=== PATIENT | female | born 1970 | race Caucasian/White ===

== ENCOUNTER 2019-09-04 14:41 | Inpatient (IN) | payer MEDICAID ==
[~2019-09-04] VITALS: Ht 160 cm; Wt 56.0 kg
[2019-09-04] MEDS ORDERED: ZOLPIDEM TARTRATE 10 MG TABLET PO PRN (16:45)
[2019-09-04] MEDS ORDERED: PROMETHAZINE HCL 25 MG TABLET PO PRN (16:45)
[2019-09-04] MEDS ORDERED: TUBERCULIN, PURIFIED PROTEIN DERIVATIVE 5 TU/0.1 ML SYRINGE ID ONE (16:45)
[2019-09-04] MEDS ORDERED: LOPERAMIDE HCL 2 MG CAPSULE PO PRN (16:45)
[2019-09-04] MEDS ORDERED: MAGNESIUM HYDROXIDE SUSPENSION 30 ML UDCUP PO PRN (16:45)
[2019-09-04] MEDS ORDERED: ACETAMINOPHEN 325 MG TABLET PO PRN (16:45)
[2019-09-04] MEDS ORDERED: MAG HYDROX/AL HYDROX/SIMETH ES 30 ML SUSPENSION UDCUP PO PRN (16:45)
[2019-09-04] MEDS ORDERED: HydrOXYzine PAMOATE 50 MG CAPSULE PO PRN (16:45)
[2019-09-04] MEDS ORDERED: OLANZapine 5 MG RAPDIS TABLET PO PRN (16:45)
[2019-09-04] MEDS ORDERED: GuaiFENesin/D-METHORPHAN [SUGAR-FREE] 200-20MG/10 ML SYRUP UDCUP PO PRN (16:45)
[2019-09-04] MEDS: THIAMINE 100 MG TABLET PO SCH (20:38)
[2019-09-04] MEDS: OLANZapine 5 MG RAPDIS TABLET PO SCH (20:38)
[2019-09-04] MEDS: LORazepam 2 MG TABLET PO PRN (21:15)
[2019-09-04 21:51] VITALS: BP 112/51
[2019-09-05] MEDS: MULTIVITAMINS WITH MINERALS, THERAPEUTIC TABLET PO SCH (08:22)
[2019-09-05] MEDS: THIAMINE 100 MG TABLET PO SCH ×2 (08:22→16:23)
[2019-09-05] MEDS: FOLIC ACID 1 MG TABLET PO SCH (08:22)
[2019-09-05] MEDS: NALTREXONE HCL 50 MG TABLET PO SCH (08:22)
[2019-09-05 17:09] VITALS: BP 108/51
[2019-09-05] MEDS: OLANZapine 5 MG RAPDIS TABLET PO SCH (21:14)
[2019-09-06 08:00] VITALS: BP 99/67
[2019-09-06] MEDS: MULTIVITAMINS WITH MINERALS, THERAPEUTIC TABLET PO SCH (09:00)
[2019-09-06] MEDS: FOLIC ACID 1 MG TABLET PO SCH (09:00)
[2019-09-06] MEDS: NALTREXONE HCL 50 MG TABLET PO SCH (09:00)
[2019-09-06] MEDS: THIAMINE 100 MG TABLET PO SCH ×2 (09:00→16:21)
[2019-09-06] MEDS: OLANZapine 10 MG RAPDIS TABLET PO SCH (21:39)
[2019-09-07] MEDS: THIAMINE 100 MG TABLET PO SCH ×2 (08:31→16:10)
[2019-09-07] MEDS: NALTREXONE HCL 50 MG TABLET PO SCH (08:31)
[2019-09-07] MEDS: MULTIVITAMINS WITH MINERALS, THERAPEUTIC TABLET PO SCH (08:31)
[2019-09-07] MEDS: FOLIC ACID 1 MG TABLET PO SCH (08:31)
[2019-09-07 16:36] VITALS: BP 122/70
[2019-09-07] MEDS: OLANZapine 10 MG RAPDIS TABLET PO SCH (20:18)
[2019-09-08] MEDS: NALTREXONE HCL 50 MG TABLET PO SCH (09:00)
[2019-09-08] MEDS: FOLIC ACID 1 MG TABLET PO SCH (09:00)
[2019-09-08] MEDS: THIAMINE 100 MG TABLET PO SCH ×2 (09:00→16:26)
[2019-09-08] MEDS: MULTIVITAMINS WITH MINERALS, THERAPEUTIC TABLET PO SCH (09:00)
[2019-09-08 17:51] VITALS: BP 96/72
[2019-09-08] MEDS: OLANZapine 10 MG RAPDIS TABLET PO SCH (20:40)
[2019-09-09] MEDS: NALTREXONE HCL 50 MG TABLET PO SCH (09:57)
[2019-09-09] MEDS: MULTIVITAMINS WITH MINERALS, THERAPEUTIC TABLET PO SCH (09:57)
[2019-09-09] MEDS: FOLIC ACID 1 MG TABLET PO SCH (09:57)
[2019-09-09] MEDS: THIAMINE 100 MG TABLET PO SCH ×2 (09:57→16:33)
[2019-09-09] MEDS: OLANZapine 10 MG RAPDIS TABLET PO SCH (20:52)
[2019-09-10] MEDS: MULTIVITAMINS WITH MINERALS, THERAPEUTIC TABLET PO SCH (09:00)
[2019-09-10] MEDS: THIAMINE 100 MG TABLET PO SCH ×2 (09:00→16:44)
[2019-09-10] MEDS: NALTREXONE HCL 50 MG TABLET PO SCH (09:00)
[2019-09-10] MEDS: FOLIC ACID 1 MG TABLET PO SCH (09:00)
[2019-09-10] MEDS: OLANZapine 10 MG RAPDIS TABLET PO SCH (20:20)
[2019-09-11 00:27] VITALS: BP 128/70
[2019-09-11] MEDS: MULTIVITAMINS WITH MINERALS, THERAPEUTIC TABLET PO SCH (09:00)
[2019-09-11] MEDS: THIAMINE 100 MG TABLET PO SCH ×2 (09:00→16:16)
[2019-09-11] MEDS: NALTREXONE HCL 50 MG TABLET PO SCH (09:00)
[2019-09-11] MEDS: FOLIC ACID 1 MG TABLET PO SCH (09:00)
[2019-09-11] MEDS: OLANZapine 10 MG RAPDIS TABLET PO SCH (20:26)
[2019-09-12] MEDS: FOLIC ACID 1 MG TABLET PO SCH (08:46)
[2019-09-12] MEDS: NALTREXONE HCL 50 MG TABLET PO SCH (08:46)
[2019-09-12] MEDS: THIAMINE 100 MG TABLET PO SCH ×2 (08:47→16:01)
[2019-09-12] MEDS: MULTIVITAMINS WITH MINERALS, THERAPEUTIC TABLET PO SCH (08:47)
[2019-09-12] MEDS ORDERED: HALOPERIDOL LACTATE 5 MG/ML VIAL IM ONE (14:45)
[2019-09-12] MEDS ORDERED: DiphenhydrAMINE HCL 50 MG/ML VIAL IM ONE (14:45)
[2019-09-12] MEDS ORDERED: LORazepam 2 MG/ML VIAL IM ONE (14:45)
[2019-09-12 17:53] VITALS: BP 115/80
[2019-09-12] MEDS: DIVALPROEX SODIUM 500 MG ER TABLET PO SCH (20:06)
[2019-09-12] MEDS: OLANZapine 10 MG RAPDIS TABLET PO SCH (20:06)
[2019-09-13 01:32] VITALS: BP 147/60
[2019-09-13] MEDS: NALTREXONE HCL 50 MG TABLET PO SCH (08:21)
[2019-09-13] MEDS: MULTIVITAMINS WITH MINERALS, THERAPEUTIC TABLET PO SCH (08:21)
[2019-09-13] MEDS: THIAMINE 100 MG TABLET PO SCH ×2 (08:21→16:20)
[2019-09-13] MEDS: FOLIC ACID 1 MG TABLET PO SCH (08:21)
[2019-09-13] MEDS: OLANZapine 10 MG RAPDIS TABLET PO SCH (20:02)
[2019-09-13] MEDS: DIVALPROEX SODIUM 500 MG ER TABLET PO SCH (20:02)
[2019-09-14] MEDS: MULTIVITAMINS WITH MINERALS, THERAPEUTIC TABLET PO SCH (08:25)
[2019-09-14] MEDS: FOLIC ACID 1 MG TABLET PO SCH (08:25)
[2019-09-14] MEDS: NALTREXONE HCL 50 MG TABLET PO SCH (08:25)
[2019-09-14] MEDS: THIAMINE 100 MG TABLET PO SCH (08:25)
[2019-09-14 08:30] VITALS: BP 103/56
[2019-09-14] MEDS ORDERED: OLAN10TA22 PO (15:01)
[2019-09-14] MEDS ORDERED: DIVA500T52 PO (15:01)
[2019-09-14] MEDS ORDERED: NALT50TA PO (15:01)
[2019-09-14] MEDS: LORazepam 2 MG TABLET PO PRN (17:46)
[2019-09-14] MEDS: DIVALPROEX SODIUM 500 MG ER TABLET PO SCH (20:14)
[2019-09-14] MEDS: OLANZapine 10 MG RAPDIS TABLET PO SCH (20:14)
[2019-09-15 08:30] VITALS: BP 107/59
[2019-09-15] MEDS: MULTIVITAMINS WITH MINERALS, THERAPEUTIC TABLET PO SCH (08:45)
[2019-09-15] MEDS: NALTREXONE HCL 50 MG TABLET PO SCH (08:45)
== END 2019-09-15 13:15 | disposition home or self-care (01) | DRG 885 ==
LOC: EMS 14:44 → 3EI 18:00
PROVIDERS: ADMIT Psychiatry & Neurology Psychiatry; ATTEND Psychiatry & Neurology Psychiatry
DX: F20.0 Paranoid schizophrenia (principal); F17.210 Nicotine dependence, cigarettes, uncomplicated; Z91.19 Patient's noncompliance with other medical treatment and regimen; Z98.891 History of uterine scar from previous surgery
CPT/HCPCS: J1200; J1630; J2060

== ENCOUNTER 2019-10-06 09:44 | Inpatient (IN) | payer MEDICAID ==
[~2019-10-06 09:44] MED LIST: DIVA-80 PO; DIVA-85 PO; NALT50TA PO; OLAN10TA22 PO; OLAN10TA3 PO
[2019-10-06] MEDS ORDERED: MAG HYDROX/AL HYDROX/SIMETH ES 30 ML SUSPENSION UDCUP PO PRN (14:45)
[2019-10-06] MEDS ORDERED: LOPERAMIDE HCL 2 MG CAPSULE PO PRN (14:45)
[2019-10-06] MEDS ORDERED: GuaiFENesin/D-METHORPHAN [SUGAR-FREE] 200-20MG/10 ML SYRUP UDCUP PO PRN (14:45)
[2019-10-06] MEDS ORDERED: ACETAMINOPHEN 325 MG TABLET PO PRN (14:45)
[2019-10-06] MEDS ORDERED: HydrOXYzine PAMOATE 50 MG CAPSULE PO PRN (14:45)
[2019-10-06] MEDS ORDERED: MAGNESIUM HYDROXIDE SUSPENSION 30 ML UDCUP PO PRN (14:45)
[2019-10-06] MEDS ORDERED: PROMETHAZINE HCL 25 MG TABLET PO PRN (14:45)
[2019-10-06 16:16] VITALS: BP 121/55
[2019-10-06] MEDS: THIAMINE 100 MG TABLET PO SCH (17:14)
[2019-10-06] MEDS: OLANZapine 5 MG RAPDIS TABLET PO SCH (21:00)
[2019-10-06] MEDS: DIVALPROEX SODIUM 500 MG ER TABLET PO SCH (21:00)
[2019-10-07 02:11] VITALS: BP 100/63
[2019-10-07] MEDS: MULTIVITAMINS WITH MINERALS, THERAPEUTIC TABLET PO SCH ×2 (08:47→10:42)
[2019-10-07] MEDS: NALTREXONE HCL 50 MG TABLET PO SCH ×2 (08:47→10:42)
[2019-10-07] MEDS: THIAMINE 100 MG TABLET PO SCH ×3 (08:47→17:03)
[2019-10-07] MEDS: FOLIC ACID 1 MG TABLET PO SCH ×2 (08:47→10:42)
[2019-10-07] MEDS: LORazepam 2 MG TABLET PO PRN ×2 (10:42→17:03)
[2019-10-07 16:06] VITALS: BP 109/60
[2019-10-07] MEDS: DIVALPROEX SODIUM 500 MG ER TABLET PO SCH (21:00)
[2019-10-07] MEDS: OLANZapine 5 MG RAPDIS TABLET PO SCH (21:00)
[2019-10-08 01:20] VITALS: BP 100/66
[2019-10-08] MEDS: LORazepam 2 MG TABLET PO PRN ×2 (08:23→16:53)
[2019-10-08] MEDS: THIAMINE 100 MG TABLET PO SCH ×2 (08:23→16:52)
[2019-10-08] MEDS: FOLIC ACID 1 MG TABLET PO SCH (08:23)
[2019-10-08] MEDS: NALTREXONE HCL 50 MG TABLET PO SCH (08:23)
[2019-10-08] MEDS: MULTIVITAMINS WITH MINERALS, THERAPEUTIC TABLET PO SCH (08:23)
[2019-10-08 16:18] VITALS: BP 119/68
[2019-10-08] MEDS: OLANZapine 5 MG RAPDIS TABLET PO PRN (19:11)
[2019-10-08] MEDS: OLANZapine 5 MG RAPDIS TABLET PO SCH (20:39)
[2019-10-08] MEDS: DIVALPROEX SODIUM 500 MG ER TABLET PO SCH (20:39)
[2019-10-09 01:50] VITALS: BP 110/66
[2019-10-09] MEDS: FOLIC ACID 1 MG TABLET PO SCH (09:04)
[2019-10-09] MEDS: THIAMINE 100 MG TABLET PO SCH ×2 (09:04→16:22)
[2019-10-09] MEDS: NALTREXONE HCL 50 MG TABLET PO SCH (09:04)
[2019-10-09] MEDS: MULTIVITAMINS WITH MINERALS, THERAPEUTIC TABLET PO SCH (09:04)
[2019-10-09] MEDS: LORazepam 2 MG TABLET PO PRN ×2 (09:05→16:22)
[2019-10-09] MEDS: OLANZapine 5 MG RAPDIS TABLET PO PRN (16:22)
[2019-10-09] MEDS: DIVALPROEX SODIUM 500 MG ER TABLET PO SCH (20:43)
[2019-10-09] MEDS: OLANZapine 5 MG RAPDIS TABLET PO SCH (20:43)
[2019-10-10 01:49] VITALS: BP 102/66
[2019-10-10] MEDS: THIAMINE 100 MG TABLET PO SCH ×2 (09:00→17:00)
[2019-10-10] MEDS: NALTREXONE HCL 50 MG TABLET PO SCH (09:00)
[2019-10-10] MEDS: FOLIC ACID 1 MG TABLET PO SCH (09:00)
[2019-10-10] MEDS: MULTIVITAMINS WITH MINERALS, THERAPEUTIC TABLET PO SCH (09:00)
[2019-10-10] MEDS ORDERED: PALIPERIDONE PALMITATE 234 MG/1.5 ML SYRINGE IM ONE (16:45)
[2019-10-10] MEDS ORDERED: PALIPERIDONE 1.5 MG ER TABLET PO PRN (16:45)
[2019-10-10] MEDS ORDERED: PALIPERIDONE 3 MG ER TABLET PO SCH (21:00)
[2019-10-10] MEDS: DIVALPROEX SODIUM 500 MG ER TABLET PO SCH (21:22)
[2019-10-11] MEDS: THIAMINE 100 MG TABLET PO SCH ×2 (08:41→17:00)
[2019-10-11] MEDS: MULTIVITAMINS WITH MINERALS, THERAPEUTIC TABLET PO SCH (08:41)
[2019-10-11] MEDS: FOLIC ACID 1 MG TABLET PO SCH (08:41)
[2019-10-11] MEDS: NALTREXONE HCL 50 MG TABLET PO SCH (08:42)
[2019-10-11] MEDS: LORazepam 2 MG TABLET PO PRN ×2 (08:42→17:00)
[2019-10-11] MEDS: DIVALPROEX SODIUM 500 MG ER TABLET PO SCH (21:00)
[2019-10-11] MEDS: PALIPERIDONE 6 MG ER TABLET PO SCH (21:00)
[2019-10-12] MEDS: LORazepam 2 MG TABLET PO PRN (09:34)
[2019-10-12] MEDS: MULTIVITAMINS WITH MINERALS, THERAPEUTIC TABLET PO SCH (09:34)
[2019-10-12] MEDS: NALTREXONE HCL 50 MG TABLET PO SCH (09:34)
[2019-10-12] MEDS: THIAMINE 100 MG TABLET PO SCH ×2 (09:34→16:26)
[2019-10-12] MEDS: FOLIC ACID 1 MG TABLET PO SCH (09:34)
[2019-10-12] MEDS: DIVALPROEX SODIUM 500 MG ER TABLET PO SCH (21:00)
[2019-10-12] MEDS: PALIPERIDONE 6 MG ER TABLET PO SCH (21:00)
[2019-10-13] MEDS: THIAMINE 100 MG TABLET PO SCH ×2 (09:59→16:22)
[2019-10-13] MEDS: MULTIVITAMINS WITH MINERALS, THERAPEUTIC TABLET PO SCH (09:59)
[2019-10-13] MEDS: FOLIC ACID 1 MG TABLET PO SCH (09:59)
[2019-10-13] MEDS: NALTREXONE HCL 50 MG TABLET PO SCH (09:59)
[2019-10-13] MEDS ORDERED: HALOPERIDOL LACTATE 5 MG/ML VIAL IM PRN (15:45)
[2019-10-13 16:02] VITALS: BP 114/71
[2019-10-13] MEDS: HALOPERIDOL 1 MG TABLET PO SCH ×2 (16:21→21:23)
[2019-10-13] MEDS ORDERED: DiphenhydrAMINE HCL 50 MG/ML VIAL IM ONE (17:00)
[2019-10-13] MEDS ORDERED: HALOPERIDOL LACTATE 5 MG/ML VIAL IM ONE (17:00)
[2019-10-13] MEDS ORDERED: LORazepam 2 MG/ML VIAL IM ONE (17:00)
[2019-10-13] MEDS: DIVALPROEX SODIUM 500 MG ER TABLET PO SCH (21:23)
[2019-10-14] MEDS: MULTIVITAMINS WITH MINERALS, THERAPEUTIC TABLET PO SCH (08:04)
[2019-10-14] MEDS: HALOPERIDOL 1 MG TABLET PO SCH ×4 (08:04→20:22)
[2019-10-14] MEDS: THIAMINE 100 MG TABLET PO SCH ×2 (08:04→16:38)
[2019-10-14] MEDS: FOLIC ACID 1 MG TABLET PO SCH (08:05)
[2019-10-14] MEDS: NALTREXONE HCL 50 MG TABLET PO SCH (08:05)
[2019-10-14 08:38] VITALS: BP 144/58
[2019-10-14] MEDS ORDERED: PALIPERIDONE PALMITATE 156 MG/ML SYRINGE IM ONE (09:00)
[2019-10-14] MEDS: LORazepam 2 MG TABLET PO PRN (10:00)
[2019-10-14] MEDS: DIVALPROEX SODIUM 500 MG ER TABLET PO SCH (20:22)
[2019-10-15] MEDS: THIAMINE 100 MG TABLET PO SCH ×2 (08:46→17:02)
[2019-10-15] MEDS: LORazepam 2 MG TABLET PO PRN ×2 (08:46→17:04)
[2019-10-15] MEDS: NALTREXONE HCL 50 MG TABLET PO SCH (08:46)
[2019-10-15] MEDS: FOLIC ACID 1 MG TABLET PO SCH (08:46)
[2019-10-15] MEDS: MULTIVITAMINS WITH MINERALS, THERAPEUTIC TABLET PO SCH (08:46)
[2019-10-15] MEDS: HALOPERIDOL 1 MG TABLET PO SCH ×4 (09:15→20:16)
[2019-10-15] MEDS: DIVALPROEX SODIUM 500 MG ER TABLET PO SCH (21:03)
[2019-10-16] MEDS: NALTREXONE HCL 50 MG TABLET PO SCH (08:42)
[2019-10-16] MEDS: MULTIVITAMINS WITH MINERALS, THERAPEUTIC TABLET PO SCH (08:42)
[2019-10-16] MEDS: HALOPERIDOL 1 MG TABLET PO SCH ×4 (08:42→20:12)
[2019-10-16] MEDS: FOLIC ACID 1 MG TABLET PO SCH (08:42)
[2019-10-16] MEDS: LORazepam 2 MG TABLET PO PRN ×2 (08:42→15:55)
[2019-10-16] MEDS: THIAMINE 100 MG TABLET PO SCH (08:42)
[2019-10-16] MEDS: DIVALPROEX SODIUM 500 MG ER TABLET PO SCH (20:12)
[2019-10-17 01:36] VITALS: BP 116/77
[2019-10-17] MEDS: NALTREXONE HCL 50 MG TABLET PO SCH (08:41)
[2019-10-17] MEDS: LORazepam 2 MG TABLET PO PRN ×2 (08:41→16:04)
[2019-10-17] MEDS: MULTIVITAMINS WITH MINERALS, THERAPEUTIC TABLET PO SCH (08:42)
[2019-10-17] MEDS: HALOPERIDOL 1 MG TABLET PO SCH ×4 (08:42→20:05)
[2019-10-17] MEDS: DIVALPROEX SODIUM 500 MG ER TABLET PO SCH (20:05)
[2019-10-18] MEDS: NALTREXONE HCL 50 MG TABLET PO SCH (09:03)
[2019-10-18] MEDS: MULTIVITAMINS WITH MINERALS, THERAPEUTIC TABLET PO SCH (09:03)
[2019-10-18] MEDS: HALOPERIDOL 1 MG TABLET PO SCH ×4 (09:03→20:26)
[2019-10-18] MEDS: LORazepam 2 MG TABLET PO PRN ×2 (09:04→16:06)
[2019-10-18] MEDS: DIVALPROEX SODIUM 500 MG ER TABLET PO SCH (20:26)
[2019-10-19] MEDS: MULTIVITAMINS WITH MINERALS, THERAPEUTIC TABLET PO SCH (08:56)
[2019-10-19] MEDS: LORazepam 2 MG TABLET PO PRN ×2 (08:56→16:06)
[2019-10-19] MEDS: NALTREXONE HCL 50 MG TABLET PO SCH (08:59)
[2019-10-19] MEDS: HALOPERIDOL 1 MG TABLET PO SCH ×4 (08:59→20:17)
[2019-10-19] MEDS: DIVALPROEX SODIUM 500 MG ER TABLET PO SCH (20:17)
[2019-10-20] MEDS: MULTIVITAMINS WITH MINERALS, THERAPEUTIC TABLET PO SCH (08:19)
[2019-10-20] MEDS: NALTREXONE HCL 50 MG TABLET PO SCH (08:20)
[2019-10-20] MEDS: HALOPERIDOL 1 MG TABLET PO SCH ×4 (08:20→20:41)
[2019-10-20 08:31] LABS: BASOPHILS % (AUTO) 0.5 % (0.0-2.0); EOSINOPHILS % (AUTO) 1.4 % (1.0-6.0); HEMATOCRIT 38.2 % (36-46); HEMOGLOBIN 13.1 g/dL (12.0-16.0); LYMPHOCYTES # (AUTO) 3.1 K/uL (1.0-4.8); LYMPHOCYTES % (AUTO) 38.9 % (22.0-44.0); MEAN CORPUSCULAR HEMOGLOBIN 29.4 pg (26.0-34.0); MEAN CORPUSCULAR HGB CONC 34.2 G/dL (31.0-37.0); MEAN CORPUSCULAR VOLUME 86 fL (80-100); MONOCYTES # (AUTO) 0.6 K/uL (0.1-1.0); MONOCYTES % (AUTO) 6.8 % (2.0-9.0); NEUTROPHILS # (AUTO) 4.2 K/uL (1.8-7.7); NEUTROPHILS % (AUTO) 52.4 % (40.0-70.0); PLATELET COUNT (AUTO) 303 K/uL (150-450); RED BLOOD CELL COUNT(AUTO) 4.44 MIL/uL (4.00-5.20); RED CELL DISTRIBUTION WIDTH 14.3 % (11.5-14.5)
[2019-10-20 09:09] LABS: ALANINE AMINOTRANSFERASE 17 U/L (12-78); ALBUMIN 3.7 g/dL (3.4-5.0); ALKALINE PHOSPHATASE 62 U/L (46-116); ANION GAP 11 mmol/L (8-16); ASPARTATE AMINOTRANSFERASE 8 U/L (15-37); BILIRUBIN,TOTAL 0.6 mg/dL (0.1-1.0); CALCIUM, TOTAL 8.6 mg/dL (8.8-10.5); CARBON DIOXIDE 29 mmol/L (22-29); CHLORIDE 100 mmol/L (98-107); CREATININE 0.58 mg/dL (0.60-1.30); GLOMERULAR FILTR. RATE CALC > 60 mL/min (>60); GLUCOSE,RANDOM 82 mg/dL (70-110); POTASSIUM 4.2 mmol/L (3.5-5.1); SODIUM SERUM 140 mmol/L (136-145); TOTAL PROTEIN, SERUM 7.2 g/dL (6.4-8.2); UREA NITROGEN, BLOOD 12 mg/dL (7-18); VALPROIC ACID 57 mcg/mL (50-100)
[2019-10-20 16:00] VITALS: BP 107/68
[2019-10-20] MEDS: DIVALPROEX SODIUM 500 MG ER TABLET PO SCH (20:41)
[2019-10-20] MEDS: ZOLPIDEM TARTRATE 10 MG TABLET PO PRN (20:41)
[2019-10-21] MEDS: HALOPERIDOL 1 MG TABLET PO SCH ×4 (08:17→20:34)
[2019-10-21] MEDS: MULTIVITAMINS WITH MINERALS, THERAPEUTIC TABLET PO SCH (08:18)
[2019-10-21] MEDS: LORazepam 2 MG TABLET PO PRN ×2 (08:18→16:06)
[2019-10-21] MEDS: NALTREXONE HCL 50 MG TABLET PO SCH (08:18)
[2019-10-21 16:24] VITALS: BP 103/74
[2019-10-21] MEDS: DIVALPROEX SODIUM 500 MG ER TABLET PO SCH (20:34)
[2019-10-21] MEDS: ZOLPIDEM TARTRATE 10 MG TABLET PO PRN (20:34)
[2019-10-22] VITALS: BP 117/61
[2019-10-22 08:12] VITALS: BP 100/57
[2019-10-22 09:40] VITALS: BP 108/70
[2019-10-22] MEDS: HALOPERIDOL 1 MG TABLET PO SCH ×4 (09:41→20:57)
[2019-10-22] MEDS: LORazepam 2 MG TABLET PO PRN (09:41)
[2019-10-22] MEDS: MULTIVITAMINS WITH MINERALS, THERAPEUTIC TABLET PO SCH (09:41)
[2019-10-22] MEDS: NALTREXONE HCL 50 MG TABLET PO SCH (09:41)
[2019-10-22] MEDS: DIVALPROEX SODIUM 500 MG ER TABLET PO SCH (20:57)
[2019-10-23] MEDS: NALTREXONE HCL 50 MG TABLET PO SCH (08:02)
[2019-10-23] MEDS: LORazepam 2 MG TABLET PO PRN ×2 (08:02→17:19)
[2019-10-23] MEDS: MULTIVITAMINS WITH MINERALS, THERAPEUTIC TABLET PO SCH (08:02)
[2019-10-23] MEDS: HALOPERIDOL 1 MG TABLET PO SCH ×4 (08:02→20:22)
[2019-10-23 08:14] VITALS: BP 108/55
[2019-10-23 16:22] VITALS: BP 112/71
[2019-10-23] MEDS: DIVALPROEX SODIUM 500 MG ER TABLET PO SCH (20:21)
[2019-10-24] MEDS: NICOTINE 21 MG/24 HOUR PATCH TD SCH (08:59)
[2019-10-24] MEDS: MULTIVITAMINS WITH MINERALS, THERAPEUTIC TABLET PO SCH (09:00)
[2019-10-24] MEDS: NALTREXONE HCL 50 MG TABLET PO SCH (09:00)
[2019-10-24] MEDS: HALOPERIDOL 1 MG TABLET PO SCH ×4 (09:03→20:35)
[2019-10-24 12:30] VITALS: BP 91/56
[2019-10-24] MEDS: LORazepam 2 MG TABLET PO PRN (16:15)
[2019-10-24] MEDS: DIVALPROEX SODIUM 500 MG ER TABLET PO SCH (20:34)
[2019-10-25] VITALS: BP 101/62
[2019-10-25 08:07] VITALS: BP 98/67
[2019-10-25] MEDS: LORazepam 2 MG TABLET PO PRN ×2 (08:16→15:26)
[2019-10-25] MEDS: HALOPERIDOL 1 MG TABLET PO SCH ×4 (08:16→20:28)
[2019-10-25] MEDS: NICOTINE 21 MG/24 HOUR PATCH TD SCH (08:16)
[2019-10-25] MEDS: MULTIVITAMINS WITH MINERALS, THERAPEUTIC TABLET PO SCH (08:16)
[2019-10-25] MEDS: NALTREXONE HCL 50 MG TABLET PO SCH (08:16)
[2019-10-25] MEDS: DIVALPROEX SODIUM 500 MG ER TABLET PO SCH (20:28)
[2019-10-26 02:07] VITALS: BP 102/72
[2019-10-26] MEDS ORDERED: TUBERCULIN, PURIFIED PROTEIN DERIVATIVE 5 TU/0.1 ML SYRINGE ID ONE (08:30)
[2019-10-26] MEDS: LORazepam 2 MG TABLET PO PRN ×2 (08:48→16:29)
[2019-10-26] MEDS: HALOPERIDOL 1 MG TABLET PO SCH ×4 (08:48→20:04)
[2019-10-26] MEDS: MULTIVITAMINS WITH MINERALS, THERAPEUTIC TABLET PO SCH (08:48)
[2019-10-26] MEDS: NALTREXONE HCL 50 MG TABLET PO SCH (08:48)
[2019-10-26] MEDS: NICOTINE 21 MG/24 HOUR PATCH TD SCH (08:48)
[2019-10-26] MEDS: DIVALPROEX SODIUM 500 MG ER TABLET PO SCH (20:03)
[2019-10-27 04:36] VITALS: BP 116/76
[2019-10-27 08:13] VITALS: BP 110/69
[2019-10-27] MEDS: LORazepam 2 MG TABLET PO PRN ×2 (08:46→16:02)
[2019-10-27] MEDS: HALOPERIDOL 1 MG TABLET PO SCH ×4 (08:46→19:59)
[2019-10-27] MEDS: MULTIVITAMINS WITH MINERALS, THERAPEUTIC TABLET PO SCH (08:46)
[2019-10-27] MEDS: NALTREXONE HCL 50 MG TABLET PO SCH (08:46)
[2019-10-27] MEDS: NICOTINE 21 MG/24 HOUR PATCH TD SCH (08:47)
[2019-10-27] MEDS ORDERED: TUBERCULIN, PURIFIED PROTEIN DERIVATIVE 5 TU/0.1 ML SYRINGE ID ONE (14:30)
[2019-10-27 16:55] VITALS: BP 123/72
[2019-10-27] MEDS: DIVALPROEX SODIUM 500 MG ER TABLET PO SCH (19:59)
[2019-10-28 04:44] VITALS: BP 114/76
[2019-10-28] MEDS: MULTIVITAMINS WITH MINERALS, THERAPEUTIC TABLET PO SCH (08:03)
[2019-10-28] MEDS: NALTREXONE HCL 50 MG TABLET PO SCH (08:03)
[2019-10-28] MEDS: HALOPERIDOL 1 MG TABLET PO SCH ×4 (08:03→20:34)
[2019-10-28] MEDS: NICOTINE 21 MG/24 HOUR PATCH TD SCH (08:12)
[2019-10-28 12:39] VITALS: BP 103/72
[2019-10-28] MEDS: LORazepam 2 MG TABLET PO PRN (13:41)
[2019-10-28 16:07] VITALS: BP 110/65
[2019-10-28] MEDS: DIVALPROEX SODIUM 500 MG ER TABLET PO SCH (20:33)
[2019-10-29] MEDS: LORazepam 2 MG TABLET PO PRN ×3 (06:43→16:00)
[2019-10-29] MEDS: MULTIVITAMINS WITH MINERALS, THERAPEUTIC TABLET PO SCH (08:04)
[2019-10-29] MEDS: HALOPERIDOL 1 MG TABLET PO SCH ×4 (08:04→20:19)
[2019-10-29] MEDS: NALTREXONE HCL 50 MG TABLET PO SCH (08:04)
[2019-10-29] MEDS: NICOTINE 21 MG/24 HOUR PATCH TD SCH ×3 (08:05→08:49)
[2019-10-29 08:22] VITALS: BP 119/66
[2019-10-29 16:12] VITALS: BP 113/69
[2019-10-29 16:14] VITALS: BP 113/69
[2019-10-29] MEDS: DIVALPROEX SODIUM 500 MG ER TABLET PO SCH (20:19)
[2019-10-30] MEDS: MULTIVITAMINS WITH MINERALS, THERAPEUTIC TABLET PO SCH (08:21)
[2019-10-30] MEDS: NALTREXONE HCL 50 MG TABLET PO SCH (08:21)
[2019-10-30] MEDS: LORazepam 2 MG TABLET PO PRN (08:21)
[2019-10-30] MEDS: NICOTINE 21 MG/24 HOUR PATCH TD SCH (08:21)
[2019-10-30] MEDS: HALOPERIDOL 1 MG TABLET PO SCH ×4 (08:21→21:40)
[2019-10-30 16:05] VITALS: BP 100/53
[2019-10-30] MEDS: DIVALPROEX SODIUM 500 MG ER TABLET PO SCH (21:40)
[2019-10-31 02:48] VITALS: BP 101/60
[2019-10-31] MEDS: NICOTINE 21 MG/24 HOUR PATCH TD SCH (09:00)
[2019-10-31] MEDS: NALTREXONE HCL 50 MG TABLET PO SCH (09:07)
[2019-10-31] MEDS: HALOPERIDOL 1 MG TABLET PO SCH ×4 (09:07→21:23)
[2019-10-31] MEDS: MULTIVITAMINS WITH MINERALS, THERAPEUTIC TABLET PO SCH (09:07)
[2019-10-31] MEDS: LORazepam 2 MG TABLET PO PRN (09:07)
[2019-10-31 16:01] VITALS: BP 106/71
[2019-10-31] MEDS: DIVALPROEX SODIUM 500 MG ER TABLET PO SCH (21:23)
[2019-11-01 04:57] VITALS: BP 102/74
[2019-11-01 08:48] LABS: AMPHET/METH SCREEN,URINE NEGATIVE (NEGATIVE); BARBITURATE SCREEN, URINE NEGATIVE (NEGATIVE); BENZODIAZEPINES SCREEN,URINE NEGATIVE (NEGATIVE); CANNABINOID SCREEN,URINE NEGATIVE (NEGATIVE); COCAINE SCREEN,URINE NEGATIVE (NEGATIVE); METHADONE SCREEN, URINE NEGATIVE (NEGATIVE); OPIATE SCREEN,URINE NEGATIVE (NEGATIVE)
[2019-11-01 08:49] LABS: PHENCYCLIDINE SCREEN,URINE NEGATIVE (NEGATIVE)
[2019-11-01] MEDS: NICOTINE 21 MG/24 HOUR PATCH TD SCH (09:00)
[2019-11-01] MEDS: NALTREXONE HCL 50 MG TABLET PO SCH (09:02)
[2019-11-01] MEDS: HALOPERIDOL 1 MG TABLET PO SCH ×4 (09:02→20:33)
[2019-11-01] MEDS: LORazepam 2 MG TABLET PO PRN (09:02)
[2019-11-01] MEDS: MULTIVITAMINS WITH MINERALS, THERAPEUTIC TABLET PO SCH (09:03)
[2019-11-01 16:05] VITALS: BP 108/76
[2019-11-01] MEDS: DIVALPROEX SODIUM 500 MG ER TABLET PO SCH (20:33)
[2019-11-02 00:05] VITALS: BP 106/70
[2019-11-02] MEDS: MULTIVITAMINS WITH MINERALS, THERAPEUTIC TABLET PO SCH (08:00)
[2019-11-02] MEDS: NALTREXONE HCL 50 MG TABLET PO SCH (08:00)
[2019-11-02] MEDS: HALOPERIDOL 1 MG TABLET PO SCH ×4 (08:01→20:35)
[2019-11-02] MEDS: NICOTINE 21 MG/24 HOUR PATCH TD SCH ×2 (08:01→09:30)
[2019-11-02] MEDS: LORazepam 2 MG TABLET PO PRN (09:31)
[2019-11-02 16:19] VITALS: BP 106/69
[2019-11-02] MEDS: DIVALPROEX SODIUM 500 MG ER TABLET PO SCH (20:35)
[2019-11-03 01:53] VITALS: BP 138/73
[2019-11-03] MEDS: MULTIVITAMINS WITH MINERALS, THERAPEUTIC TABLET PO SCH (08:02)
[2019-11-03] MEDS: HALOPERIDOL 1 MG TABLET PO SCH ×2 (08:02→12:22)
[2019-11-03] MEDS: NALTREXONE HCL 50 MG TABLET PO SCH (08:02)
[2019-11-03] MEDS: NICOTINE 21 MG/24 HOUR PATCH TD SCH (08:03)
[2019-11-03 08:11] VITALS: BP 100/56
[2019-11-03] MEDS: HALOPERIDOL 2 MG TABLET PO SCH (16:11)
[2019-11-03] MEDS: DIVALPROEX SODIUM 500 MG ER TABLET PO SCH (20:25)
[2019-11-04 05:39] VITALS: BP 132/73
[2019-11-04] MEDS: NALTREXONE HCL 50 MG TABLET PO SCH (08:07)
[2019-11-04] MEDS: HALOPERIDOL 2 MG TABLET PO SCH ×2 (08:07→16:02)
[2019-11-04] MEDS: LORazepam 2 MG TABLET PO PRN (08:08)
[2019-11-04] MEDS: MULTIVITAMINS WITH MINERALS, THERAPEUTIC TABLET PO SCH (08:11)
[2019-11-04] MEDS: NICOTINE 21 MG/24 HOUR PATCH TD SCH (08:11)
[2019-11-04] MEDS: DIVALPROEX SODIUM 500 MG ER TABLET PO SCH (20:03)
[2019-11-05] MEDS: NICOTINE 21 MG/24 HOUR PATCH TD SCH (08:04)
[2019-11-05] MEDS: HALOPERIDOL 2 MG TABLET PO SCH ×2 (08:04→16:13)
[2019-11-05] MEDS: MULTIVITAMINS WITH MINERALS, THERAPEUTIC TABLET PO SCH (08:04)
[2019-11-05] MEDS: NALTREXONE HCL 50 MG TABLET PO SCH (08:04)
[2019-11-05 08:12] VITALS: BP 100/53
[2019-11-05] MEDS: LORazepam 2 MG TABLET PO PRN ×2 (08:33→16:13)
[2019-11-05 08:35] VITALS: BP 114/72
[2019-11-05] MEDS: DIVALPROEX SODIUM 500 MG ER TABLET PO SCH (20:03)
[2019-11-06 06:02] VITALS: BP 101/64
[2019-11-06 08:24] VITALS: BP 113/78
[2019-11-06] MEDS: HALOPERIDOL 2 MG TABLET PO SCH ×2 (08:44→16:18)
[2019-11-06] MEDS: DIVALPROEX SODIUM 500 MG ER TABLET PO SCH ×2 (08:44→21:00)
[2019-11-06] MEDS: NICOTINE 21 MG/24 HOUR PATCH TD SCH (08:44)
[2019-11-06] MEDS: MULTIVITAMINS WITH MINERALS, THERAPEUTIC TABLET PO SCH (08:44)
[2019-11-06] MEDS: NALTREXONE HCL 50 MG TABLET PO SCH (08:44)
[2019-11-06] MEDS: LORazepam 2 MG TABLET PO PRN (08:44)
[2019-11-06 16:22] VITALS: BP 107/59
[2019-11-07 01:57] VITALS: BP 102/68
[2019-11-07 02:05] VITALS: BP 110/77
[2019-11-07] MEDS: HALOPERIDOL 2 MG TABLET PO SCH ×2 (08:01→16:23)
[2019-11-07] MEDS: NALTREXONE HCL 50 MG TABLET PO SCH (08:01)
[2019-11-07] MEDS: MULTIVITAMINS WITH MINERALS, THERAPEUTIC TABLET PO SCH (08:01)
[2019-11-07] MEDS: DIVALPROEX SODIUM 500 MG ER TABLET PO SCH ×2 (08:01→21:00)
[2019-11-07 08:09] VITALS: BP 102/74
[2019-11-07] MEDS: LORazepam 2 MG TABLET PO PRN ×2 (09:02→16:40)
[2019-11-07] MEDS: NICOTINE 21 MG/24 HOUR PATCH TD SCH (09:04)
[2019-11-07] MEDS: HALOPERIDOL 10 MG TABLET PO SCH (21:00)
[2019-11-08 01:10] VITALS: BP 100/76
[2019-11-08] MEDS: MULTIVITAMINS WITH MINERALS, THERAPEUTIC TABLET PO SCH (08:32)
[2019-11-08] MEDS: NICOTINE 21 MG/24 HOUR PATCH TD SCH (08:32)
[2019-11-08] MEDS: NALTREXONE HCL 50 MG TABLET PO SCH (08:32)
[2019-11-08] MEDS: DIVALPROEX SODIUM 500 MG ER TABLET PO SCH ×2 (08:33→20:17)
[2019-11-08 09:00] VITALS: BP 105/59
[2019-11-08] MEDS: LORazepam 2 MG TABLET PO PRN ×2 (12:04→16:04)
[2019-11-08] MEDS: HALOPERIDOL 10 MG TABLET PO SCH (20:18)
[2019-11-09 04:00] VITALS: BP 108/64
[2019-11-09] MEDS: DIVALPROEX SODIUM 500 MG ER TABLET PO SCH ×2 (09:14→20:03)
[2019-11-09] MEDS: MULTIVITAMINS WITH MINERALS, THERAPEUTIC TABLET PO SCH (09:14)
[2019-11-09] MEDS: NALTREXONE HCL 50 MG TABLET PO SCH (09:14)
[2019-11-09] MEDS: HALOPERIDOL 5 MG TABLET PO PRN (09:15)
[2019-11-09] MEDS: LORazepam 2 MG TABLET PO PRN ×2 (09:15→16:06)
[2019-11-09] MEDS: NICOTINE 21 MG/24 HOUR PATCH TD SCH (09:15)
[2019-11-09] MEDS: HALOPERIDOL 10 MG TABLET PO SCH (20:03)
[2019-11-10 04:35] VITALS: BP 107/67
[2019-11-10] MEDS: NICOTINE 21 MG/24 HOUR PATCH TD SCH (08:37)
[2019-11-10] MEDS: DIVALPROEX SODIUM 500 MG ER TABLET PO SCH ×2 (08:37→20:54)
[2019-11-10] MEDS: MULTIVITAMINS WITH MINERALS, THERAPEUTIC TABLET PO SCH (08:37)
[2019-11-10] MEDS: NALTREXONE HCL 50 MG TABLET PO SCH (08:37)
[2019-11-10] MEDS: HALOPERIDOL 5 MG TABLET PO PRN ×2 (09:27→16:40)
[2019-11-10] MEDS: LORazepam 2 MG TABLET PO PRN ×2 (09:28→16:40)
[2019-11-10] MEDS: HALOPERIDOL 10 MG TABLET PO SCH (20:54)
[2019-11-11 01:27] VITALS: BP 108/81
[2019-11-11] MEDS: MULTIVITAMINS WITH MINERALS, THERAPEUTIC TABLET PO SCH (08:02)
[2019-11-11] MEDS: DIVALPROEX SODIUM 500 MG ER TABLET PO SCH ×2 (08:02→20:19)
[2019-11-11] MEDS: NALTREXONE HCL 50 MG TABLET PO SCH (08:02)
[2019-11-11] MEDS: NICOTINE 21 MG/24 HOUR PATCH TD SCH (08:09)
[2019-11-11] MEDS: LORazepam 2 MG TABLET PO PRN (18:51)
[2019-11-11] MEDS: HALOPERIDOL 10 MG TABLET PO SCH (20:19)
[2019-11-11 20:51] VITALS: BP 111/53
[2019-11-12 06:24] VITALS: BP 102/53
[2019-11-12] MEDS: NICOTINE 21 MG/24 HOUR PATCH TD SCH (09:00)
[2019-11-12] MEDS: MULTIVITAMINS WITH MINERALS, THERAPEUTIC TABLET PO SCH (09:20)
[2019-11-12] MEDS: NALTREXONE HCL 50 MG TABLET PO SCH (09:20)
[2019-11-12] MEDS: DIVALPROEX SODIUM 500 MG ER TABLET PO SCH ×2 (09:20→20:40)
[2019-11-12] MEDS: LORazepam 2 MG TABLET PO PRN ×2 (13:36→17:36)
[2019-11-12 16:08] VITALS: BP 100/55
[2019-11-12] MEDS: ZOLPIDEM TARTRATE 10 MG TABLET PO PRN (20:40)
[2019-11-12] MEDS: HALOPERIDOL 10 MG TABLET PO SCH (20:40)
[2019-11-13 01:16] VITALS: BP 123/69
[2019-11-13] MEDS: NALTREXONE HCL 50 MG TABLET PO SCH (08:36)
[2019-11-13] MEDS: NICOTINE 21 MG/24 HOUR PATCH TD SCH (08:36)
[2019-11-13] MEDS: MULTIVITAMINS WITH MINERALS, THERAPEUTIC TABLET PO SCH (08:36)
[2019-11-13] MEDS: DIVALPROEX SODIUM 500 MG ER TABLET PO SCH ×2 (09:14→19:55)
[2019-11-13 16:01] VITALS: BP 129/70
[2019-11-13] MEDS: LORazepam 2 MG TABLET PO PRN (16:34)
[2019-11-13] MEDS: HALOPERIDOL 10 MG TABLET PO SCH (19:55)
[2019-11-14 05:15] VITALS: BP 120/62
[2019-11-14 08:05] VITALS: BP 130/77
[2019-11-14] MEDS: NICOTINE 21 MG/24 HOUR PATCH TD SCH ×2 (08:41→09:00)
[2019-11-14] MEDS: DIVALPROEX SODIUM 500 MG ER TABLET PO SCH ×2 (08:42→19:58)
[2019-11-14] MEDS: NALTREXONE HCL 50 MG TABLET PO SCH (08:42)
[2019-11-14] MEDS: MULTIVITAMINS WITH MINERALS, THERAPEUTIC TABLET PO SCH (08:42)
[2019-11-14] MEDS: LORazepam 2 MG TABLET PO PRN (15:56)
[2019-11-14] MEDS: HALOPERIDOL 10 MG TABLET PO SCH (19:59)
[2019-11-15 00:06] VITALS: BP 100/53
[2019-11-15 08:02] VITALS: BP 133/64
[2019-11-15] MEDS: NALTREXONE HCL 50 MG TABLET PO SCH (08:21)
[2019-11-15] MEDS: DIVALPROEX SODIUM 500 MG ER TABLET PO SCH ×2 (08:21→20:03)
[2019-11-15] MEDS: MULTIVITAMINS WITH MINERALS, THERAPEUTIC TABLET PO SCH (08:21)
[2019-11-15] MEDS: NICOTINE 21 MG/24 HOUR PATCH TD SCH (08:33)
[2019-11-15 16:09] VITALS: BP 111/67
[2019-11-15] MEDS: HALOPERIDOL 10 MG TABLET PO SCH (20:03)
[2019-11-16 08:01] VITALS: BP 104/62
[2019-11-16] MEDS: NICOTINE 21 MG/24 HOUR PATCH TD SCH (09:00)
[2019-11-16] MEDS: DIVALPROEX SODIUM 500 MG ER TABLET PO SCH ×2 (10:29→19:55)
[2019-11-16] MEDS: MULTIVITAMINS WITH MINERALS, THERAPEUTIC TABLET PO SCH (10:29)
[2019-11-16] MEDS: NALTREXONE HCL 50 MG TABLET PO SCH (10:30)
[2019-11-16] MEDS: LORazepam 2 MG TABLET PO PRN (16:02)
[2019-11-16 16:32] VITALS: BP 105/57
[2019-11-16] MEDS: HALOPERIDOL 10 MG TABLET PO SCH (19:54)
[2019-11-17 06:05] VITALS: BP 103/68
[2019-11-17] MEDS: NICOTINE 21 MG/24 HOUR PATCH TD SCH (09:00)
[2019-11-17] MEDS: DIVALPROEX SODIUM 500 MG ER TABLET PO SCH ×2 (10:16→20:03)
[2019-11-17] MEDS: MULTIVITAMINS WITH MINERALS, THERAPEUTIC TABLET PO SCH (10:16)
[2019-11-17] MEDS: NALTREXONE HCL 50 MG TABLET PO SCH (10:16)
[2019-11-17 16:19] VITALS: BP 114/66
[2019-11-17] MEDS: HALOPERIDOL 10 MG TABLET PO SCH (20:03)
[2019-11-17] MEDS: ZOLPIDEM TARTRATE 10 MG TABLET PO PRN (21:30)
[2019-11-18 06:19] VITALS: BP 100/59
[2019-11-18] MEDS: MULTIVITAMINS WITH MINERALS, THERAPEUTIC TABLET PO SCH (08:02)
[2019-11-18] MEDS: NALTREXONE HCL 50 MG TABLET PO SCH (08:02)
[2019-11-18] MEDS: DIVALPROEX SODIUM 500 MG ER TABLET PO SCH ×2 (08:02→19:52)
[2019-11-18] MEDS: NICOTINE 21 MG/24 HOUR PATCH TD SCH (08:02)
[2019-11-18 08:11] VITALS: BP 112/58
[2019-11-18 16:36] VITALS: BP 109/60
[2019-11-18] MEDS: HALOPERIDOL 10 MG TABLET PO SCH (19:52)
[2019-11-19 00:26] VITALS: BP 106/68
[2019-11-19] MEDS: NICOTINE 21 MG/24 HOUR PATCH TD SCH (09:00)
[2019-11-19] MEDS: DIVALPROEX SODIUM 500 MG ER TABLET PO SCH ×2 (09:35→20:02)
[2019-11-19] MEDS: NALTREXONE HCL 50 MG TABLET PO SCH (09:35)
[2019-11-19] MEDS: MULTIVITAMINS WITH MINERALS, THERAPEUTIC TABLET PO SCH (09:35)
[2019-11-19 09:42] VITALS: BP 107/57
[2019-11-19 16:10] VITALS: BP 98/60
[2019-11-19] MEDS: HALOPERIDOL 10 MG TABLET PO SCH (20:01)
[2019-11-20 05:31] VITALS: BP 100/68
[2019-11-20 08:21] VITALS: BP 120/68
[2019-11-20] MEDS: NALTREXONE HCL 50 MG TABLET PO SCH (08:21)
[2019-11-20] MEDS: MULTIVITAMINS WITH MINERALS, THERAPEUTIC TABLET PO SCH (08:21)
[2019-11-20] MEDS: DIVALPROEX SODIUM 500 MG ER TABLET PO SCH (08:21)
[2019-11-20] MEDS: NICOTINE 21 MG/24 HOUR PATCH TD SCH (08:23)
[2019-11-20] MEDS ORDERED: DIVA-80 PO ×2 (08:37)
[2019-11-20] MEDS ORDERED: HALO10 PO (08:37)
[2019-11-20] MEDS ORDERED: NALT50TA PO (08:37)
== END 2019-11-20 10:44 | disposition home or self-care (01) | DRG 885 ==
LOC: B3A 14:12 → B2S 11-13 15:08
PROVIDERS: ADMIT Psychiatry & Neurology Psychiatry; ATTEND Psychiatry & Neurology Psychiatry
DX: F20.0 Paranoid schizophrenia (principal); F17.210 Nicotine dependence, cigarettes, uncomplicated; Z91.14 Patient's other noncompliance with medication regimen; Z91.19 Patient's noncompliance with other medical treatment and regimen; Z59.0 Homelessness; Z03.818 Encounter for observation for suspected exposure to other biological agents ruled out
CPT/HCPCS: 80173; 80307; J1200; J1630; J2060

== ENCOUNTER 2021-12-30 09:47 | Inpatient (IN) | payer MEDICAID, OTHER ==
[~2021-12-30] VITALS: Ht 162.6 cm; Wt 76.2 kg
[~2021-12-30 09:47] MED LIST changes: +HALO10TA21 PO; -OLAN10TA22 PO; -OLAN10TA3 PO; +OLAN10TA74 PO
[2021-12-30 11:40] LABS: BASOPHILS % (AUTO) 0.2 % (0.0-2.0); EOSINOPHILS % (AUTO) 1.4 % (1.0-6.0); HEMATOCRIT 36.6 % (36-46); HEMOGLOBIN 12.1 g/dL (12.0-16.0); LYMPHOCYTES # (AUTO) 1.8 K/uL (1.0-4.8); LYMPHOCYTES % (AUTO) 16.8 % (22.0-44.0); MEAN CORPUSCULAR HEMOGLOBIN 26.4 pg (26.0-34.0); MEAN CORPUSCULAR HGB CONC 33.1 G/dL (31.0-37.0); MEAN CORPUSCULAR VOLUME 80 fL (80-100); MONOCYTES # (AUTO) 0.6 K/uL (0.1-1.0); MONOCYTES % (AUTO) 5.7 % (2.0-9.0); NEUTROPHILS % (AUTO) 75.9 % (40.0-70.0); PLATELET COUNT (AUTO) 607 K/uL (150-450); RED BLOOD CELL COUNT(AUTO) 4.59 MIL/uL (4.00-5.20); RED CELL DISTRIBUTION WIDTH 16.4 % (11.5-14.5)
[2021-12-30 11:59] LABS: ANION GAP 6 mmol/L (8-16); CALCIUM, TOTAL 9.2 mg/dL (8.8-10.5); CARBON DIOXIDE 30 mmol/L (22-29); CHLORIDE 100 mmol/L (98-107); CREATININE 0.58 mg/dL (0.60-1.30); GLOMERULAR FILTR. RATE CALC > 60 mL/min (>60); GLUCOSE,RANDOM 108 mg/dL (70-110); POTASSIUM 3.3 mmol/L (3.5-5.1); SODIUM SERUM 136 mmol/L (136-145); UREA NITROGEN, BLOOD 16 mg/dL (7-18)
[2021-12-30 12:18] LABS: ALANINE AMINOTRANSFERASE 24 U/L (12-78); ALBUMIN 3.8 g/dL (3.4-5.0); ALKALINE PHOSPHATASE 88 U/L (46-116); ASPARTATE AMINOTRANSFERASE 24 U/L (15-37); BILIRUBIN,TOTAL 0.6 mg/dL (0.1-1.0); TOTAL PROTEIN, SERUM 7.5 g/dL (6.4-8.2)
[2021-12-30] MEDS ORDERED: ZOLPIDEM TARTRATE 10 MG TABLET PO PRN (12:30)
[2021-12-30] MEDS ORDERED: POTASSIUM CHLORIDE 10% 40 MEQ/30 ML LIQUID UDCUP PO ONE (14:00)
[2021-12-30 15:22] LABS: COVID AG,FIA SOURCE NASAL SWAB
[2021-12-30 20:17] VITALS: BP 121/65
[2021-12-30 20:43] VITALS: BP 121/65
[2021-12-30] MEDS ORDERED: BACITRACIN 28 GM OINTMENT TP PRN (23:15)
[2021-12-31] MEDS ORDERED: PNEUMOCOCCAL VACCINE POLYVALENT 0.5 ML VIAL [PPSV23] IM. ONE (00:15)
[2021-12-31 08:27] VITALS: BP 124/83
[2021-12-31] MEDS: VALPROIC ACID 250 MG CAPSULE PO SCH ×2 (13:00→17:00)
[2021-12-31] MEDS: OLANZapine 5 MG TABLET PO SCH ×2 (13:00→21:00)
[2021-12-31] MEDS ORDERED: PETROLATUM,WHITE 28 GM JELLY TP PRN (13:30)
[2021-12-31] MEDS ORDERED: GuaiFENesin/D-METHORPHAN [SUGAR-FREE] 200-20MG/10 ML SYRUP UDCUP PO PRN (13:30)
[2021-12-31] MEDS ORDERED: ALBUTEROL SULFATE HFA 90 MCG/PUFF 8 GM INHALER IH PRN (13:30)
[2021-12-31] MEDS ORDERED: ONDANSETRON HCL 4 MG TABLET PO PRN (13:30)
[2021-12-31] MEDS ORDERED: NICOTINE 14 MG/24 HOUR PATCH TD PRN (13:30)
[2021-12-31] MEDS ORDERED: IBUPROFEN 400 MG TABLET PO PRN (13:30)
[2021-12-31] MEDS ORDERED: LOPERAMIDE HCL 2 MG CAPSULE PO PRN (13:30)
[2021-12-31] MEDS ORDERED: CloNIDine HCL 0.1 MG TABLET PO PRN (13:30)
[2021-12-31] MEDS ORDERED: ACETAMINOPHEN 325 MG TABLET PO PRN (13:30)
[2021-12-31] MEDS ORDERED: MAG HYDROX/AL HYDROX/SIMETH ES 30 ML SUSPENSION UDCUP PO PRN (13:30)
[2021-12-31] MEDS ORDERED: DOCUSATE SODIUM 100 MG CAPSULE PO PRN (13:30)
[2021-12-31] MEDS ORDERED: MAGNESIUM HYDROXIDE SUSPENSION 30 ML UDCUP PO PRN (13:30)
[2021-12-31] MEDS ORDERED: LORazepam 2 MG/ML VIAL ONE (16:49)
[2021-12-31] MEDS ORDERED: HALOPERIDOL LACTATE 5 MG/ML VIAL ONE (16:53)
[2021-12-31] MEDS ORDERED: DiphenhydrAMINE HCL 50 MG/ML VIAL ONE (16:58)
[2021-12-31] MEDS ORDERED: DiphenhydrAMINE HCL 50 MG/ML VIAL IM ONE (17:00)
[2021-12-31] MEDS: RisperiDONE 2 MG TABLET PO SCH (17:00)
[2021-12-31] MEDS ORDERED: HALOPERIDOL LACTATE 5 MG/ML VIAL IM ONE (17:00)
[2021-12-31] MEDS ORDERED: ChlorproMAZINE HCL 50 MG/2 ML AMP IM ONE (17:00)
[2021-12-31] MEDS ORDERED: LORazepam 2 MG/ML VIAL IM ONE (17:00)
[2022-01-01] MEDS: OLANZapine 5 MG TABLET PO SCH ×2 (09:00→21:00)
[2022-01-01] MEDS: RisperiDONE 2 MG TABLET PO SCH ×2 (09:00→16:42)
[2022-01-01] MEDS: VALPROIC ACID 250 MG CAPSULE PO SCH ×3 (09:00→16:42)
[2022-01-02] MEDS: OLANZapine 5 MG TABLET PO SCH ×2 (09:00→20:12)
[2022-01-02] MEDS: VALPROIC ACID 250 MG CAPSULE PO SCH ×3 (09:00→16:28)
[2022-01-02] MEDS: RisperiDONE 2 MG TABLET PO SCH ×2 (09:00→16:28)
[2022-01-02 20:04] VITALS: BP 141/96
[2022-01-03] MEDS: RisperiDONE 2 MG TABLET PO SCH ×3 (09:00→16:59)
[2022-01-03] MEDS: OLANZapine 5 MG TABLET PO SCH ×3 (09:00→20:14)
[2022-01-03] MEDS: VALPROIC ACID 250 MG CAPSULE PO SCH ×4 (09:00→16:59)
[2022-01-03] MEDS ORDERED: LORazepam 2 MG/ML VIAL ONE (09:14)
[2022-01-03] MEDS ORDERED: DiphenhydrAMINE HCL 50 MG/ML VIAL ONE (09:15)
[2022-01-03] MEDS ORDERED: HALOPERIDOL LACTATE 5 MG/ML VIAL IM ONE (09:15)
[2022-01-03] MEDS ORDERED: DiphenhydrAMINE HCL 50 MG/ML VIAL IM ONE (09:15)
[2022-01-03] MEDS ORDERED: HALOPERIDOL LACTATE 5 MG/ML VIAL ONE (09:15)
[2022-01-03] MEDS ORDERED: LORazepam 2 MG/ML VIAL IM ONE (09:15)
[2022-01-03] MEDS: LORazepam 2 MG TABLET PO PRN (13:07)
[2022-01-04] MEDS: RisperiDONE 2 MG TABLET PO SCH ×2 (09:24→17:05)
[2022-01-04] MEDS: OLANZapine 5 MG TABLET PO SCH ×2 (09:24→20:33)
[2022-01-04] MEDS: VALPROIC ACID 250 MG CAPSULE PO SCH ×3 (09:24→17:05)
[2022-01-04] MEDS: LORazepam 2 MG TABLET PO PRN (10:48)
[2022-01-04] MEDS: HALOPERIDOL 5 MG TABLET PO PRN (10:48)
[2022-01-05] MEDS: OLANZapine 5 MG TABLET PO SCH ×2 (08:08→20:17)
[2022-01-05] MEDS: RisperiDONE 2 MG TABLET PO SCH ×2 (08:08→18:45)
[2022-01-05] MEDS: VALPROIC ACID 250 MG CAPSULE PO SCH ×3 (08:08→18:45)
[2022-01-05] MEDS: HALOPERIDOL 5 MG TABLET PO PRN (16:19)
[2022-01-05] MEDS: LORazepam 2 MG TABLET PO PRN (16:19)
[2022-01-06 08:14] VITALS: BP 122/79
[2022-01-06] MEDS: VALPROIC ACID 250 MG CAPSULE PO SCH ×3 (09:27→16:14)
[2022-01-06] MEDS: RisperiDONE 2 MG TABLET PO SCH ×2 (09:27→16:14)
[2022-01-06] MEDS: HALOPERIDOL 5 MG TABLET PO PRN ×2 (09:27→16:14)
[2022-01-06] MEDS: OLANZapine 5 MG TABLET PO SCH ×2 (09:27→20:18)
[2022-01-06 16:05] VITALS: BP 135/72
[2022-01-06 20:08] VITALS: BP 135/72
[2022-01-07] MEDS: OLANZapine 5 MG TABLET PO SCH ×2 (08:10→20:11)
[2022-01-07] MEDS: RisperiDONE 2 MG TABLET PO SCH ×2 (08:10→16:09)
[2022-01-07] MEDS: VALPROIC ACID 250 MG CAPSULE PO SCH ×3 (08:10→17:00)
[2022-01-07 08:19] VITALS: BP 129/79
[2022-01-07 14:26] LABS: GLUCOMETER DEV NAME(LOC) POC.BV
[2022-01-07] MEDS: HALOPERIDOL 5 MG TABLET PO PRN (16:10)
[2022-01-08] MEDS: VALPROIC ACID 250 MG CAPSULE PO SCH ×3 (09:02→16:04)
[2022-01-08] MEDS: OLANZapine 5 MG TABLET PO SCH ×2 (09:02→20:04)
[2022-01-08] MEDS: RisperiDONE 2 MG TABLET PO SCH ×2 (09:02→16:04)
[2022-01-08 21:16] VITALS: BP 119/82
[2022-01-09] MEDS: LORazepam 2 MG TABLET PO PRN (03:07)
[2022-01-09] MEDS: HALOPERIDOL 5 MG TABLET PO PRN (03:07)
[2022-01-09] MEDS: OLANZapine 5 MG TABLET PO SCH ×2 (08:17→20:07)
[2022-01-09] MEDS: VALPROIC ACID 250 MG CAPSULE PO SCH ×3 (08:17→16:17)
[2022-01-09] MEDS: RisperiDONE 2 MG TABLET PO SCH ×2 (08:17→16:15)
[2022-01-09 08:34] VITALS: BP 122/78
[2022-01-10] MEDS: HALOPERIDOL 5 MG TABLET PO PRN ×4 (02:05→20:05)
[2022-01-10 04:09] VITALS: BP 125/71
[2022-01-10] MEDS: RisperiDONE 2 MG TABLET PO SCH ×2 (07:51→16:12)
[2022-01-10] MEDS: VALPROIC ACID 250 MG CAPSULE PO SCH ×3 (07:51→16:12)
[2022-01-10] MEDS: OLANZapine 5 MG TABLET PO SCH ×2 (07:51→20:05)
[2022-01-10 08:09] VITALS: BP 121/84
[2022-01-10 20:26] VITALS: BP 127/85
[2022-01-11] MEDS: VALPROIC ACID 250 MG CAPSULE PO SCH ×3 (08:36→16:13)
[2022-01-11] MEDS: RisperiDONE 2 MG TABLET PO SCH ×2 (08:37→16:12)
[2022-01-11] MEDS: HALOPERIDOL 5 MG TABLET PO PRN ×3 (08:37→17:02)
[2022-01-11] MEDS: OLANZapine 5 MG TABLET PO SCH ×2 (08:37→20:20)
[2022-01-11 21:23] VITALS: BP 144/73
[2022-01-12 04:21] VITALS: BP 136/78
[2022-01-12] MEDS: OLANZapine 5 MG TABLET PO SCH ×2 (07:56→20:00)
[2022-01-12] MEDS: VALPROIC ACID 250 MG CAPSULE PO SCH ×3 (07:56→16:14)
[2022-01-12] MEDS: RisperiDONE 2 MG TABLET PO SCH ×2 (07:56→16:14)
[2022-01-12 20:44] VITALS: BP 133/82
[2022-01-13] MEDS: VALPROIC ACID 250 MG CAPSULE PO SCH ×3 (08:17→16:08)
[2022-01-13] MEDS: RisperiDONE 2 MG TABLET PO SCH ×2 (08:17→16:08)
[2022-01-13] MEDS: OLANZapine 5 MG TABLET PO SCH ×2 (08:17→20:13)
[2022-01-13 08:23] VITALS: BP 106/56
[2022-01-13 20:27] VITALS: BP 125/57
[2022-01-14 08:39] VITALS: BP 128/86
[2022-01-14] MEDS: OLANZapine 5 MG TABLET PO SCH ×2 (09:54→20:12)
[2022-01-14] MEDS: RisperiDONE 2 MG TABLET PO SCH ×2 (09:54→17:12)
[2022-01-14] MEDS: VALPROIC ACID 250 MG CAPSULE PO SCH ×3 (09:54→17:12)
[2022-01-14] MEDS: HALOPERIDOL 5 MG TABLET PO PRN (10:28)
[2022-01-14] MEDS ORDERED: DiphenhydrAMINE HCL 50 MG/ML VIAL ONE (16:10)
[2022-01-14] MEDS ORDERED: HALOPERIDOL LACTATE 5 MG/ML VIAL ONE (16:10)
[2022-01-14] MEDS ORDERED: LORazepam 2 MG/ML VIAL ONE (16:10)
[2022-01-14] MEDS ORDERED: HALOPERIDOL LACTATE 5 MG/ML VIAL IM ONE (16:15)
[2022-01-14] MEDS ORDERED: DiphenhydrAMINE HCL 50 MG/ML VIAL IM ONE (16:15)
[2022-01-14] MEDS ORDERED: LORazepam 2 MG/ML VIAL IM ONE (16:15)
[2022-01-14 21:13] VITALS: BP 120/83
[2022-01-15 04:00] VITALS: BP 121/80
[2022-01-15] MEDS: OLANZapine 5 MG TABLET PO SCH ×2 (08:28→20:53)
[2022-01-15] MEDS: VALPROIC ACID 250 MG CAPSULE PO SCH ×3 (08:28→16:04)
[2022-01-15] MEDS: RisperiDONE 2 MG TABLET PO SCH ×2 (08:28→16:04)
[2022-01-15] MEDS: HALOPERIDOL 5 MG TABLET PO PRN ×2 (09:11→13:36)
[2022-01-15 20:49] VITALS: BP 113/61
[2022-01-15 23:01] LABS: GLUCOMETER DEV NAME(LOC) POC.BV
[2022-01-16 08:31] VITALS: BP 118/90
[2022-01-16] MEDS: RisperiDONE 2 MG TABLET PO SCH ×2 (08:41→16:01)
[2022-01-16] MEDS: OLANZapine 5 MG TABLET PO SCH ×2 (08:41→20:14)
[2022-01-16] MEDS: VALPROIC ACID 250 MG CAPSULE PO SCH ×3 (08:41→16:01)
[2022-01-16] MEDS: HALOPERIDOL 5 MG TABLET PO PRN (09:09)
[2022-01-16 20:09] VITALS: BP 138/62
[2022-01-17] MEDS: OLANZapine 5 MG TABLET PO SCH ×2 (08:26→20:10)
[2022-01-17] MEDS: VALPROIC ACID 250 MG CAPSULE PO SCH ×3 (08:26→16:25)
[2022-01-17] MEDS: RisperiDONE 2 MG TABLET PO SCH ×2 (08:26→16:25)
[2022-01-17 10:44] VITALS: BP 107/63
[2022-01-17] MEDS: HALOPERIDOL 5 MG TABLET PO PRN (16:27)
[2022-01-17 21:51] VITALS: BP 125/66
[2022-01-18] MEDS: HALOPERIDOL 5 MG TABLET PO PRN (08:11)
[2022-01-18] MEDS: VALPROIC ACID 250 MG CAPSULE PO SCH ×3 (08:11→16:11)
[2022-01-18] MEDS: RisperiDONE 2 MG TABLET PO SCH ×2 (08:11→16:11)
[2022-01-18] MEDS: OLANZapine 5 MG TABLET PO SCH ×2 (08:11→20:08)
[2022-01-18 11:05] VITALS: BP 118/70
[2022-01-18 12:00] VITALS: BP 122/59
[2022-01-18 18:36] VITALS: BP 120/68
[2022-01-19 04:57] VITALS: BP 118/70
[2022-01-19 08:21] VITALS: BP 124/68
[2022-01-19] MEDS ORDERED: LORazepam 2 MG/ML VIAL IM ONE (09:00)
[2022-01-19] MEDS ORDERED: HALOPERIDOL LACTATE 5 MG/ML VIAL IM ONE (09:00)
[2022-01-19] MEDS ORDERED: DiphenhydrAMINE HCL 50 MG/ML VIAL IM ONE (09:00)
[2022-01-19] MEDS: RisperiDONE 2 MG TABLET PO SCH ×2 (09:39→16:10)
[2022-01-19] MEDS: OLANZapine 5 MG TABLET PO SCH ×2 (09:39→20:08)
[2022-01-19] MEDS: VALPROIC ACID 250 MG CAPSULE PO SCH (09:39)
[2022-01-19] MEDS: VALPROIC ACID 250 MG/5 ML SOLUTION UDCUP PO SCH ×2 (12:39→16:10)
[2022-01-20 05:02] VITALS: BP 122/71
[2022-01-20 08:30] VITALS: BP 123/69
[2022-01-20] MEDS: OLANZapine 5 MG TABLET PO SCH ×2 (08:39→21:18)
[2022-01-20] MEDS: VALPROIC ACID 250 MG/5 ML SOLUTION UDCUP PO SCH ×3 (08:39→16:15)
[2022-01-20] MEDS: RisperiDONE 2 MG TABLET PO SCH ×2 (08:39→16:15)
[2022-01-20 20:09] VITALS: BP 144/72
[2022-01-21] MEDS: VALPROIC ACID 250 MG/5 ML SOLUTION UDCUP PO SCH ×3 (08:36→16:17)
[2022-01-21] MEDS: OLANZapine 5 MG TABLET PO SCH ×2 (08:36→20:28)
[2022-01-21] MEDS: RisperiDONE 2 MG TABLET PO SCH ×2 (08:36→16:17)
[2022-01-21 20:12] VITALS: BP 128/62
[2022-01-22] MEDS: VALPROIC ACID 250 MG/5 ML SOLUTION UDCUP PO SCH ×3 (09:23→17:21)
[2022-01-22] MEDS: RisperiDONE 2 MG TABLET PO SCH ×2 (09:23→17:21)
[2022-01-22] MEDS: OLANZapine 5 MG TABLET PO SCH ×2 (09:23→20:23)
[2022-01-22 20:15] VITALS: BP 129/68
[2022-01-22 23:47] VITALS: BP 143/80
[2022-01-22] MEDS: HALOPERIDOL 5 MG TABLET PO PRN (23:48)
[2022-01-23 08:06] VITALS: BP 131/65
[2022-01-23] MEDS: HALOPERIDOL 5 MG TABLET PO PRN ×3 (08:29→20:17)
[2022-01-23] MEDS: RisperiDONE 2 MG TABLET PO SCH ×2 (08:29→16:07)
[2022-01-23] MEDS: OLANZapine 5 MG TABLET PO SCH ×2 (08:29→20:17)
[2022-01-23] MEDS: VALPROIC ACID 250 MG/5 ML SOLUTION UDCUP PO SCH ×3 (08:34→17:22)
[2022-01-23 20:11] VITALS: BP 109/46
[2022-01-24 08:04] VITALS: BP 127/60
[2022-01-24] MEDS: VALPROIC ACID 250 MG/5 ML SOLUTION UDCUP PO SCH ×3 (10:25→16:11)
[2022-01-24] MEDS: RisperiDONE 2 MG TABLET PO SCH ×2 (10:25→16:11)
[2022-01-24] MEDS: OLANZapine 5 MG TABLET PO SCH ×2 (10:25→20:27)
[2022-01-24] MEDS: HALOPERIDOL 5 MG TABLET PO PRN (12:33)
[2022-01-25 04:10] VITALS: BP 126/68
[2022-01-25 08:19] VITALS: BP 117/66
[2022-01-25] MEDS: OLANZapine 5 MG TABLET PO SCH ×2 (08:37→20:58)
[2022-01-25] MEDS: VALPROIC ACID 250 MG/5 ML SOLUTION UDCUP PO SCH ×3 (08:37→18:19)
[2022-01-25] MEDS: RisperiDONE 2 MG TABLET PO SCH ×2 (08:37→16:52)
[2022-01-25] MEDS: HALOPERIDOL 5 MG TABLET PO PRN (12:56)
[2022-01-25 20:20] VITALS: BP 121/37
[2022-01-26] MEDS: HALOPERIDOL 5 MG TABLET PO PRN (08:07)
[2022-01-26] MEDS: RisperiDONE 2 MG TABLET PO SCH ×2 (08:07→16:05)
[2022-01-26] MEDS: OLANZapine 5 MG TABLET PO SCH ×2 (08:07→20:07)
[2022-01-26] MEDS: VALPROIC ACID 250 MG/5 ML SOLUTION UDCUP PO SCH ×3 (08:07→16:05)
[2022-01-27] MEDS: OLANZapine 5 MG TABLET PO SCH ×2 (08:52→20:23)
[2022-01-27] MEDS: RisperiDONE 2 MG TABLET PO SCH ×2 (08:52→16:08)
[2022-01-27] MEDS: VALPROIC ACID 250 MG/5 ML SOLUTION UDCUP PO SCH ×3 (08:52→16:08)
[2022-01-27 08:59] VITALS: BP 124/82
[2022-01-27 21:50] VITALS: BP 136/67
[2022-01-28] MEDS: VALPROIC ACID 250 MG/5 ML SOLUTION UDCUP PO SCH ×3 (10:12→16:03)
[2022-01-28] MEDS: RisperiDONE 2 MG TABLET PO SCH ×2 (10:12→16:03)
[2022-01-28] MEDS: OLANZapine 5 MG TABLET PO SCH ×2 (10:12→20:10)
[2022-01-28 21:15] VITALS: BP 136/67
[2022-01-29] MEDS: OLANZapine 5 MG TABLET PO SCH ×2 (08:25→20:11)
[2022-01-29] MEDS: VALPROIC ACID 250 MG/5 ML SOLUTION UDCUP PO SCH ×3 (08:25→16:01)
[2022-01-29] MEDS: RisperiDONE 2 MG TABLET PO SCH ×2 (08:25→16:01)
[2022-01-29] MEDS: HALOPERIDOL 5 MG TABLET PO PRN ×2 (12:01→23:18)
[2022-01-29] MEDS: BENZTROPINE MESYLATE 1 MG TABLET PO SCH (16:02)
[2022-01-30] VITALS: BP 141/62
[2022-01-30] MEDS: RisperiDONE 2 MG TABLET PO SCH ×2 (08:35→17:14)
[2022-01-30] MEDS: OLANZapine 5 MG TABLET PO SCH ×2 (08:35→20:39)
[2022-01-30] MEDS: BENZTROPINE MESYLATE 1 MG TABLET PO SCH ×2 (08:35→17:14)
[2022-01-30] MEDS: VALPROIC ACID 250 MG/5 ML SOLUTION UDCUP PO SCH ×3 (08:35→17:14)
[2022-01-30] MEDS: HALOPERIDOL 5 MG TABLET PO PRN ×2 (14:15→23:05)
[2022-01-30 21:12] VITALS: BP 143/80
[2022-01-31] MEDS: OLANZapine 5 MG TABLET PO SCH ×2 (07:56→20:53)
[2022-01-31] MEDS: BENZTROPINE MESYLATE 1 MG TABLET PO SCH ×2 (07:56→16:45)
[2022-01-31] MEDS: RisperiDONE 2 MG TABLET PO SCH ×2 (07:56→16:45)
[2022-01-31] MEDS: VALPROIC ACID 250 MG/5 ML SOLUTION UDCUP PO SCH ×3 (07:56→16:45)
[2022-01-31] MEDS: HALOPERIDOL 5 MG TABLET PO PRN ×2 (16:45→23:54)
[2022-02-01] MEDS: VALPROIC ACID 250 MG/5 ML SOLUTION UDCUP PO SCH ×3 (08:23→16:54)
[2022-02-01] MEDS: OLANZapine 5 MG TABLET PO SCH ×2 (08:23→20:34)
[2022-02-01] MEDS: HALOPERIDOL 5 MG TABLET PO PRN (08:23)
[2022-02-01] MEDS: BENZTROPINE MESYLATE 1 MG TABLET PO SCH ×2 (08:24→16:54)
[2022-02-01] MEDS: RisperiDONE 2 MG TABLET PO SCH ×2 (08:24→16:54)
[2022-02-01 20:07] VITALS: BP 104/61
[2022-02-02] MEDS: OLANZapine 5 MG TABLET PO SCH ×2 (08:38→20:22)
[2022-02-02] MEDS: BENZTROPINE MESYLATE 1 MG TABLET PO SCH ×2 (08:38→17:29)
[2022-02-02] MEDS: VALPROIC ACID 250 MG/5 ML SOLUTION UDCUP PO SCH ×3 (08:38→17:29)
[2022-02-02] MEDS: RisperiDONE 2 MG TABLET PO SCH ×2 (08:38→17:29)
[2022-02-03] MEDS: HALOPERIDOL 5 MG TABLET PO PRN (00:47)
[2022-02-03] MEDS: OLANZapine 5 MG TABLET PO SCH ×2 (08:03→20:07)
[2022-02-03] MEDS: BENZTROPINE MESYLATE 1 MG TABLET PO SCH ×2 (08:04→17:41)
[2022-02-03] MEDS: VALPROIC ACID 250 MG/5 ML SOLUTION UDCUP PO SCH ×3 (08:04→17:41)
[2022-02-03] MEDS: RisperiDONE 2 MG TABLET PO SCH ×2 (08:04→17:42)
[2022-02-03 08:27] VITALS: BP 114/69
[2022-02-04] MEDS: RisperiDONE 2 MG TABLET PO SCH ×2 (08:03→16:29)
[2022-02-04] MEDS: OLANZapine 5 MG TABLET PO SCH ×2 (08:03→21:39)
[2022-02-04] MEDS: BENZTROPINE MESYLATE 1 MG TABLET PO SCH ×2 (08:03→16:29)
[2022-02-04] MEDS: VALPROIC ACID 250 MG/5 ML SOLUTION UDCUP PO SCH ×3 (08:03→16:29)
[2022-02-04 21:09] VITALS: BP 119/72
[2022-02-05] MEDS: BENZTROPINE MESYLATE 1 MG TABLET PO SCH ×2 (08:16→16:08)
[2022-02-05] MEDS: RisperiDONE 2 MG TABLET PO SCH ×2 (08:16→16:10)
[2022-02-05] MEDS: VALPROIC ACID 250 MG/5 ML SOLUTION UDCUP PO SCH ×3 (08:16→16:08)
[2022-02-05] MEDS: OLANZapine 5 MG TABLET PO SCH ×2 (08:16→20:17)
[2022-02-05 08:20] VITALS: BP 127/84
[2022-02-05] MEDS: HALOPERIDOL 5 MG TABLET PO PRN (13:09)
[2022-02-06 06:11] VITALS: BP 117/65
[2022-02-06] MEDS: OLANZapine 5 MG TABLET PO SCH ×2 (08:00→20:21)
[2022-02-06] MEDS: BENZTROPINE MESYLATE 1 MG TABLET PO SCH ×2 (08:00→16:14)
[2022-02-06] MEDS: RisperiDONE 2 MG TABLET PO SCH ×2 (08:00→16:14)
[2022-02-06] MEDS: VALPROIC ACID 250 MG/5 ML SOLUTION UDCUP PO SCH ×3 (08:00→16:14)
[2022-02-06 08:37] VITALS: BP 148/79
[2022-02-06] MEDS: HALOPERIDOL 5 MG TABLET PO PRN (22:46)
[2022-02-07 08:34] VITALS: BP 126/94
[2022-02-07] MEDS: BENZTROPINE MESYLATE 1 MG TABLET PO SCH ×2 (08:40→15:59)
[2022-02-07] MEDS: OLANZapine 5 MG TABLET PO SCH ×2 (08:40→20:54)
[2022-02-07] MEDS: VALPROIC ACID 250 MG/5 ML SOLUTION UDCUP PO SCH ×3 (08:40→15:59)
[2022-02-07] MEDS: RisperiDONE 2 MG TABLET PO SCH ×2 (08:40→15:59)
[2022-02-07] MEDS: HALOPERIDOL 5 MG TABLET PO PRN (10:33)
[2022-02-07 22:59] VITALS: BP 130/90
[2022-02-08 08:00] VITALS: BP 124/66
[2022-02-08] MEDS: VALPROIC ACID 250 MG/5 ML SOLUTION UDCUP PO SCH ×3 (08:23→16:05)
[2022-02-08] MEDS: RisperiDONE 2 MG TABLET PO SCH ×2 (08:24→16:04)
[2022-02-08] MEDS: OLANZapine 5 MG TABLET PO SCH ×2 (08:24→20:13)
[2022-02-08] MEDS: BENZTROPINE MESYLATE 1 MG TABLET PO SCH ×2 (08:24→16:05)
[2022-02-08] MEDS: HALOPERIDOL 5 MG TABLET PO PRN ×2 (10:09→14:10)
[2022-02-08 23:00] VITALS: BP 122/62
[2022-02-09] MEDS: HALOPERIDOL 5 MG TABLET PO PRN ×3 (03:23→20:24)
[2022-02-09 07:16] LABS: GLUCOMETER DEV NAME(LOC) POC.BV
[2022-02-09] MEDS: VALPROIC ACID 250 MG/5 ML SOLUTION UDCUP PO SCH ×3 (08:56→17:37)
[2022-02-09] MEDS: BENZTROPINE MESYLATE 1 MG TABLET PO SCH ×2 (08:56→17:37)
[2022-02-09] MEDS: RisperiDONE 2 MG TABLET PO SCH ×2 (08:56→17:38)
[2022-02-09] MEDS: OLANZapine 5 MG TABLET PO SCH ×2 (08:56→20:24)
[2022-02-09] MEDS ORDERED: PERMETHRIN 1% 60 ML LOTION TP ONE (12:30)
[2022-02-09 20:00] VITALS: BP 134/66
[2022-02-10] MEDS: VALPROIC ACID 250 MG/5 ML SOLUTION UDCUP PO SCH ×3 (08:41→16:19)
[2022-02-10] MEDS: RisperiDONE 2 MG TABLET PO SCH ×2 (08:41→16:19)
[2022-02-10] MEDS: OLANZapine 5 MG TABLET PO SCH ×2 (08:41→20:08)
[2022-02-10] MEDS: BENZTROPINE MESYLATE 1 MG TABLET PO SCH ×2 (08:41→16:19)
[2022-02-10] MEDS ORDERED: IVERMECTIN 3 MG TABLET PO ONE (20:00)
[2022-02-11] MEDS: HALOPERIDOL 5 MG TABLET PO PRN ×2 (04:34→12:14)
[2022-02-11] MEDS: OLANZapine 5 MG TABLET PO SCH ×2 (08:20→20:17)
[2022-02-11] MEDS: BENZTROPINE MESYLATE 1 MG TABLET PO SCH ×2 (08:20→16:15)
[2022-02-11] MEDS: RisperiDONE 2 MG TABLET PO SCH ×2 (08:21→16:14)
[2022-02-11] MEDS: VALPROIC ACID 250 MG/5 ML SOLUTION UDCUP PO SCH ×3 (08:21→16:14)
[2022-02-11 20:20] VITALS: BP 125/62
[2022-02-12] MEDS: OLANZapine 5 MG TABLET PO SCH ×2 (08:29→20:49)
[2022-02-12] MEDS: VALPROIC ACID 250 MG/5 ML SOLUTION UDCUP PO SCH ×3 (08:29→16:24)
[2022-02-12] MEDS: RisperiDONE 2 MG TABLET PO SCH ×2 (08:29→16:24)
[2022-02-12] MEDS: BENZTROPINE MESYLATE 1 MG TABLET PO SCH ×2 (08:29→16:24)
[2022-02-12 20:07] VITALS: BP 134/73
[2022-02-12] MEDS: HALOPERIDOL 5 MG TABLET PO PRN (20:49)
[2022-02-12] MEDS ORDERED: ZOLPIDEM TARTRATE 10 MG TABLET PO PRN (22:45)
[2022-02-12] MEDS: LORazepam 2 MG TABLET PO PRN (22:52)
[2022-02-13] MEDS: RisperiDONE 2 MG TABLET PO SCH (08:28)
[2022-02-13] MEDS: OLANZapine 5 MG TABLET PO SCH (08:28)
[2022-02-13] MEDS: VALPROIC ACID 250 MG/5 ML SOLUTION UDCUP PO SCH (08:36)
[2022-02-13] MEDS: BENZTROPINE MESYLATE 1 MG TABLET PO SCH (08:38)
[2022-02-13] MEDS: LORazepam 2 MG TABLET PO PRN (08:41)
[2022-02-13] MEDS: HALOPERIDOL 5 MG TABLET PO PRN (08:41)
[2022-02-13] MEDS ORDERED: OLAN5TAB52 PO ×2 (09:45→12:28)
[2022-02-13] MEDS ORDERED: BENZ1TAB96 PO ×2 (09:45→12:28)
[2022-02-13] MEDS ORDERED: VALP250C48 PO ×2 (09:45→12:28)
[2022-02-13] MEDS ORDERED: RISP2TAB45 PO ×2 (09:45→12:28)
[2022-02-20] MEDS ORDERED: IVERMECTIN 3 MG TABLET PO ONE (14:45)
== END 2022-02-13 13:03 | disposition home or self-care (01) | DRG 750 ==
LOC: EMS 09:47 → B3A 19:04
PROVIDERS: ADMIT Psychiatry & Neurology Child & Adolescent Psychiatry; ATTEND Psychiatry & Neurology Child & Adolescent Psychiatry
DX: F20.0 Paranoid schizophrenia (principal); D75.839 Thrombocytosis, unspecified; Z20.822 Contact with and (suspected) exposure to COVID-19; E87.6 Hypokalemia; F10.10 Alcohol abuse, uncomplicated; F17.200 Nicotine dependence, unspecified, uncomplicated; Z71.41 Alcohol abuse counseling and surveillance of alcoholic; Z59.00 Homelessness unspecified; Z79.899 Other long term (current) drug therapy; Z98.891 History of uterine scar from previous surgery
CPT/HCPCS: 80053; 84132; 85025; 99285; G0480; J1200; J1630; J2060